=== PATIENT | male | born 2000 | race Caucasian/White ===

== ENCOUNTER 2023-09-23 14:16 | Emergency (ER) | payer MEDICAID ==
[~2023-09-23] VITALS: Ht 172.7 cm; Wt 73.0 kg
[2023-09-23] MEDS ORDERED: olanzapine (14:29)
[2023-09-23] MEDS ORDERED: haldol (14:29)
[2023-09-23] MEDS ORDERED: divalproex sodium (14:29)
[2023-09-23 14:30] VITALS: O2SAT 98
[2023-09-23] MEDS ORDERED: KETOROLAC 30MG/ML VIAL IM ONE (14:45)
[2023-09-23] MEDS ORDERED: METOCLOPRAMIDE HCL 10MG TABLET PO ONE (14:45)
[2023-09-23] MEDS ORDERED: DIPHENHYDRAMINE 25MG CAPSULE PO ONE (14:45)
[2023-09-23] MEDS ORDERED: IBUP-2029 MT (15:45)
[2023-09-23] MEDS ORDERED: AMOX-494 MT (15:45)
[2023-09-23] MEDS: METOCLOPRAMIDE HCL 10MG TABLET PO NR (17:03)
[2023-09-23] MEDS: KETOROLAC 30MG/ML VIAL IM NR (17:03)
[2023-09-23] MEDS: DIPHENHYDRAMINE 25MG CAPSULE PO NR (17:03)
[2023-09-23 17:18] VITALS: BP 117/80; PULSE 85; RESP 18; TEMP 98
== END 2023-09-23 18:35 | disposition home or self-care (01) ==
LOC: ER 14:16
DX: H92.01 Otalgia, right ear (principal); H66.91 Otitis media, unspecified, right ear
CPT/HCPCS: 99283; 96372; Q0163; J8597; J1885

== ENCOUNTER 2023-09-25 08:44 | Emergency (ER) | payer MEDICAID ==
[~2023-09-25] VITALS: Ht 170.2 cm; Wt 64.0 kg
[~2023-09-25 08:44] MED LIST: AMOX-494 MT; IBUP-2029 MT; divalproex sodium; haldol; olanzapine
[2023-09-25 08:49] VITALS: O2SAT 98
[2023-09-25 09:58] VITALS: TEMP 98.3
[2023-09-25] MEDS: ACETAMINOPHEN 325MG TABLET PO ONE (09:58)
[2023-09-25] MEDS: IBUPROFEN 600MG TABLET PO ONE (09:58)
[2023-09-25] MEDS ORDERED: TOPUD MT (10:59)
[2023-09-25] MEDS ORDERED: CLAR10 MT (10:59)
[2023-09-25] MEDS ORDERED: FLUT9.9S BOTHNSTRLS (10:59)
[2023-09-25 11:18] VITALS: BP 115/79; PULSE 78; RESP 16
== END 2023-09-25 11:42 | disposition home or self-care (01) ==
LOC: ER 10:09
DX: H92.01 Otalgia, right ear (principal)
CPT/HCPCS: 99283